=== PATIENT | female | born 1960 | race Two or more races ===

== ENCOUNTER 2017-09-23 09:56 | Day surgery (SDC) | payer OTHER ==
[~2017-09-23 09:56] MED LIST: CLINDAMYCIN 600 MG/D5W (PMX) 50 ML IVPB; SOD CHLORIDE 0.9% 1,000 ML IV
[2017-09-23] MEDS ORDERED: PROPOFOL 20 ML (12:11)
[2017-09-23] MEDS ORDERED: DEXAMETHASONE 4 MG/ML 1 ML INJ (12:11)
[2017-09-23] MEDS ORDERED: ONDANSETRON 4 MG INJ (12:11)
[2017-09-23] MEDS ORDERED: ROCURONIUM 50 MG INJ (12:11)
[2017-09-23] MEDS ORDERED: FENTAnyl 50 MCG/ML VIAL (12:11)
[2017-09-23] MEDS ORDERED: MIDAZOLAM 1 MG/ML 2 ML INJ (12:11)
[2017-09-23] MEDS ORDERED: CEFAZOLIN 1 GM INJ (12:11)
[2017-09-23] MEDS ORDERED: NEOSTIGMINE 3 MG/3 ML SYRINGE (12:11)
[2017-09-23] MEDS ORDERED: LABETALOL HCL 20MG INJ IV (13:00)
[2017-09-23] MEDS ORDERED: OXYCODONE/ACETAMINOPHEN (5/325) TAB PO ×2 (13:00)
[2017-09-23] MEDS ORDERED: hydrALAzine 20 MG INJ IV (13:00)
[2017-09-23] MEDS ORDERED: ALBUTEROL 0.083% (NEB) 2.5 MG/3 ML AMP HHN (13:00)
[2017-09-23] MEDS ORDERED: EPHEDrine SULFATE 50 MG/5 ML SYG IV (13:00)
[2017-09-23] MEDS ORDERED: IPRATROPIUM (NEB) 0.5 MG/2.5 ML AMP HHN (13:00)
[2017-09-23] MEDS ORDERED: MIDAZOLAM 1 MG/ML 2 ML INJ IV (13:00)
[2017-09-23] MEDS ORDERED: TRIMETHOBENZAMIDE 100 MG/ML VIAL IM (13:00)
[2017-09-23] MEDS ORDERED: MEPERIDINE 25 MG INJ IV (13:00)
[2017-09-23] MEDS ORDERED: DIPHENHYDRAMINE 50 MG INJ IV (13:00)
[2017-09-23] MEDS ORDERED: FENTAnyl 50 MCG/ML VIAL IV ×3 (13:00)
[2017-09-23] MEDS ORDERED: HYDROmorphONE (0.2 MG/ML) 10ML SYG IV (13:00)
[2017-09-23] MEDS ORDERED: KETOROLAC 30 MG INJ (13:27)
[2017-09-23] MEDS ORDERED: SUGAMMADEX SODIUM 200 MG/2 ML VIAL IV (13:29)
[2017-09-23] MEDS: BUPIVACAINE 0.25% (MPF) 30 ML INJ (13:34)
[2017-09-23] MEDS ORDERED: ONDANSETRON 4 MG INJ IV (14:00)
[2017-09-23] MEDS ORDERED: HYDROCODONE/APAP (5/325) TAB PO ×2 (14:00)
[2017-09-23] MEDS: HYDROmorphONE (0.2 MG/ML) 10ML SYG IV ×4 (14:15→15:00)
[2017-09-23] MEDS: ONDANSETRON 4 MG INJ IV (14:16)
== END 2017-09-23 17:36 | disposition home or self-care (01) ==
LOC: SDS 09:56
DX: K80.10 Calculus of gallbladder with chronic cholecystitis without obstruction (principal)
CPT/HCPCS: 47562; 88304